=== PATIENT | female | born 1970 | race Caucasian/White ===

== ENCOUNTER → 2019-09-05 16:10 | Outpatient (BNVA) | payer MEDICAID, SELFPAY | PROVIDERS: Family Provider Nurse Practitioner; PCP Nurse Practitioner; Visit Provider Nurse Practitioner | DX: E11.65 Type 2 diabetes mellitus with hyperglycemia (principal); I10 Essential (primary) hypertension; M54.9 Dorsalgia, unspecified; M54.2 Cervicalgia; M25.50 Pain in unspecified joint | CPT/HCPCS: 72040; 72072; 72100; 73130; 73502; 73562; 73630; 80048; 83036 ==

== ENCOUNTER → 2019-09-19 14:07 | Outpatient (BNVA) | payer MEDICAID, SELFPAY | PROVIDERS: Family Provider Nurse Practitioner; PCP Nurse Practitioner; Visit Provider Nurse Practitioner | DX: E55.9 Vitamin D deficiency, unspecified (principal); E11.65 Type 2 diabetes mellitus with hyperglycemia; E11.40 Type 2 diabetes mellitus with diabetic neuropathy, unspecified; M10.9 Gout, unspecified | CPT/HCPCS: 82306; 84550 ==

== ENCOUNTER → 2020-01-02 12:57 | Outpatient (BNVA) | payer MEDICAID, SELFPAY | PROVIDERS: Family Provider Nurse Practitioner; PCP Nurse Practitioner; Visit Provider Nurse Practitioner | DX: I10 Essential (primary) hypertension (principal); E11.40 Type 2 diabetes mellitus with diabetic neuropathy, unspecified; E11.65 Type 2 diabetes mellitus with hyperglycemia | CPT/HCPCS: 80053; 80061; 83036; 85025 ==

== ENCOUNTER → 2020-01-03 09:34 | Outpatient (BNVA) | payer MEDICAID, SELFPAY | PROVIDERS: Family Provider Nurse Practitioner; PCP Nurse Practitioner; Visit Provider Nurse Practitioner | DX: E11.65 Type 2 diabetes mellitus with hyperglycemia (principal); E11.40 Type 2 diabetes mellitus with diabetic neuropathy, unspecified; I10 Essential (primary) hypertension | CPT/HCPCS: 81000 ==

== ENCOUNTER → 2020-01-09 09:41 | Outpatient (BNVA) | payer MEDICAID, SELFPAY | PROVIDERS: Family Provider Nurse Practitioner; PCP Nurse Practitioner; Visit Provider Nurse Practitioner | DX: E11.65 Type 2 diabetes mellitus with hyperglycemia (principal); M19.071 Primary osteoarthritis, right ankle and foot; M19.072 Primary osteoarthritis, left ankle and foot | CPT/HCPCS: 73630 ==

== ENCOUNTER → 2020-01-17 13:28 | Outpatient (BNVA) | payer MEDICAID, SELFPAY | PROVIDERS: Family Provider Nurse Practitioner; PCP Nurse Practitioner; Visit Provider Nurse Practitioner Family | DX: J06.9 Acute upper respiratory infection, unspecified (principal); Z20.828 Contact with and (suspected) exposure to other viral communicable diseases | CPT/HCPCS: 87635 ==

== ENCOUNTER → 2020-03-06 00:01 | Outpatient (BNVA) | payer MEDICAID, SELFPAY | PROVIDERS: Family Provider Nurse Practitioner; PCP Nurse Practitioner; Visit Provider Nurse Practitioner Family | DX: Z11.59 Encounter for screening for other viral diseases (principal) | CPT/HCPCS: 87635 ==

== ENCOUNTER → 2020-04-08 15:06 | Outpatient (BNVA) | payer MEDICAID, SELFPAY | PROVIDERS: Family Provider Nurse Practitioner; PCP Nurse Practitioner; Visit Provider Nurse Practitioner | DX: E11.65 Type 2 diabetes mellitus with hyperglycemia (principal); Z79.4 Long term (current) use of insulin; E11.40 Type 2 diabetes mellitus with diabetic neuropathy, unspecified; I10 Essential (primary) hypertension; E55.9 Vitamin D deficiency, unspecified | CPT/HCPCS: 80053; 81000; 83036 ==

== ENCOUNTER → 2020-06-18 08:37 | Outpatient (BNVA) | payer MEDICAID, SELFPAY | PROVIDERS: Family Provider Nurse Practitioner; PCP Nurse Practitioner; Visit Provider Nurse Practitioner | DX: E04.9 Nontoxic goiter, unspecified (principal); I10 Essential (primary) hypertension; I73.9 Peripheral vascular disease, unspecified; S91.309A Unspecified open wound, unspecified foot, initial encounter | CPT/HCPCS: 84443 ==

== ENCOUNTER → 2020-07-04 09:27 | Outpatient (BNVA) | payer MEDICAID, SELFPAY | PROVIDERS: Family Provider Nurse Practitioner; PCP Nurse Practitioner; Visit Provider Nurse Practitioner | DX: E04.9 Nontoxic goiter, unspecified (principal); I10 Essential (primary) hypertension; I73.9 Peripheral vascular disease, unspecified; S91.309A Unspecified open wound, unspecified foot, initial encounter; E11.40 Type 2 diabetes mellitus with diabetic neuropathy, unspecified; E11.65 Type 2 diabetes mellitus with hyperglycemia; Z79.4 Long term (current) use of insulin | CPT/HCPCS: 73630; 80053; 80061; 81000; 83036; 85025 ==

== ENCOUNTER 2020-07-18 07:44 | Outpatient (CLI) | payer MEDICAID, SELFPAY ==
--- NOTE | 2020-07-18 08:00 | US_ITS ---
WS: [id number] THYROID ULTRASOUND (TI-RADS CRITERIA) History: Nontoxic goiter.. Technique: Ultrasound examination of the thyroid and adjacent soft tissues is performed. FINDINGS: Right lobe: 4.9 cm x 2.1 cm x 1.8 cm. Volume: 9.7 cm3. Normal size gland. There are 2 subcentimeter hypoechoic nodules within the gland. The largest in the superior pole measures 5 x 7 x 9 mm. Lymph nodes: Small benign cervical chain and submandibular lymph nodes. Left lobe: 5.2 cm x 2.1 cm x 2.1 cm. Volume: 11.9 cm3. Normal size gland. Solid nodule lower pole. Lymph nodes: None. NODULE: 3 Size: 1.4 x 1.2 x 1.5 cm Location: LEFT inferior Composition: Solid/almost completely solid (2) Echogenicity: Isoechoic (1) Shape: Not taller than wide (0) Margins: Smooth (0) Echogenic foci: None (0) ACR TI-RADS total points: 3 ACR TI-RADS risk category: TR3 Isthmus: 0.7 cm. Isthmus is very mildly prominent and heterogeneous. US/US thyroid [id number] Impression: TR3 Recommendation:Follow up ultrasound in 1, 3 and 5 years. If thyroid nodule(s) change on follow-up examinations the recommendations will be altered as necessary.
== END 2020-07-18 07:45 | disposition home or self-care (01) ==
PROVIDERS: PCP Nurse Practitioner; Visit Provider Nurse Practitioner Family
DX: E04.9 Nontoxic goiter, unspecified (principal)
CPT/HCPCS: 76536

== ENCOUNTER → 2020-10-14 16:28 | Outpatient (BNVA) | payer MEDICAID, SELFPAY | PROVIDERS: PCP Nurse Practitioner; Visit Provider Nurse Practitioner | DX: E11.65 Type 2 diabetes mellitus with hyperglycemia (principal); Z79.4 Long term (current) use of insulin; I10 Essential (primary) hypertension; E11.40 Type 2 diabetes mellitus with diabetic neuropathy, unspecified; I73.9 Peripheral vascular disease, unspecified; M54.9 Dorsalgia, unspecified; R13.10 Dysphagia, unspecified; E55.9 Vitamin D deficiency, unspecified | CPT/HCPCS: 80053; 83036; 85025 ==

== ENCOUNTER → 2020-10-22 15:17 | Outpatient (BNVA) | payer MEDICAID, SELFPAY | PROVIDERS: PCP Nurse Practitioner; Visit Provider Nurse Practitioner | DX: M54.9 Dorsalgia, unspecified (principal); J38.2 Nodules of vocal cords; R93.89 Abnormal findings on diagnostic imaging of other specified body structures | CPT/HCPCS: 71046; 72072 ==

== ENCOUNTER → 2020-10-27 14:56 | Outpatient (BNVA) | payer MEDICAID, SELFPAY | PROVIDERS: PCP Nurse Practitioner; Visit Provider Nurse Practitioner | DX: R93.89 Abnormal findings on diagnostic imaging of other specified body structures (principal) | CPT/HCPCS: 71046 ==

== ENCOUNTER → 2021-01-13 09:50 | Outpatient (BNVA) | payer MEDICAID, SELFPAY | PROVIDERS: PCP Nurse Practitioner; Visit Provider Nurse Practitioner | DX: I10 Essential (primary) hypertension (principal); E11.40 Type 2 diabetes mellitus with diabetic neuropathy, unspecified; E11.65 Type 2 diabetes mellitus with hyperglycemia; I73.9 Peripheral vascular disease, unspecified; Z79.4 Long term (current) use of insulin; M25.50 Pain in unspecified joint | CPT/HCPCS: 80053; 80061; 81000; 83036; 84443; 85651; 86140; 86431 ==

== ENCOUNTER → 2021-04-07 10:18 | Outpatient (BNVA) | payer MEDICAID, SELFPAY | PROVIDERS: PCP Nurse Practitioner; Visit Provider Nurse Practitioner | DX: E11.65 Type 2 diabetes mellitus with hyperglycemia (principal); Z79.4 Long term (current) use of insulin | CPT/HCPCS: 80053; 80061; 81000; 83036 ==

== ENCOUNTER → 2021-07-06 12:05 | Outpatient (BNVA) | payer MEDICAID, SELFPAY | PROVIDERS: PCP Nurse Practitioner; Visit Provider Nurse Practitioner | DX: E11.65 Type 2 diabetes mellitus with hyperglycemia (principal); Z79.4 Long term (current) use of insulin | CPT/HCPCS: 80053; 80061; 81000; 83036 ==

== ENCOUNTER → 2021-07-08 15:03 | Outpatient (BNVA) | payer MEDICAID, SELFPAY | PROVIDERS: PCP Nurse Practitioner; Visit Provider Nurse Practitioner | DX: M54.12 Radiculopathy, cervical region (principal) | CPT/HCPCS: 72040 ==

== ENCOUNTER → 2021-07-24 13:38 | Outpatient (BNVA) | payer MEDICAID, SELFPAY | PROVIDERS: PCP Nurse Practitioner; Visit Provider Podiatrist Foot & Ankle Surgery | DX: L60.3 Nail dystrophy (principal); S92.351A Displaced fracture of fifth metatarsal bone, right foot, initial encounter for closed fracture; W22.8XXA Striking against or struck by other objects, initial encounter; E11.621 Type 2 diabetes mellitus with foot ulcer; L97.522 Non-pressure chronic ulcer of other part of left foot with fat layer exposed; E11.40 Type 2 diabetes mellitus with diabetic neuropathy, unspecified; Z79.4 Long term (current) use of insulin | CPT/HCPCS: 11042; 11721; 28470; 73630 ==

== ENCOUNTER → 2021-08-06 08:17 | Outpatient (BNVA) | payer MEDICAID, SELFPAY | PROVIDERS: PCP Nurse Practitioner; Referring Provider Nurse Practitioner; Visit Provider Orthopaedic Surgery | DX: L60.3 Nail dystrophy (principal); E11.40 Type 2 diabetes mellitus with diabetic neuropathy, unspecified; S92.351D Displaced fracture of fifth metatarsal bone, right foot, subsequent encounter for fracture with routine healing; W22.8XXD Striking against or struck by other objects, subsequent encounter; M54.9 Dorsalgia, unspecified | CPT/HCPCS: 72040; 73630; 99204; 99213; 99214 ==

== ENCOUNTER 2021-09-09 07:05 | Outpatient (CLI) | payer MEDICAID, SELFPAY ==
--- NOTE | 2021-09-09 07:15 | MR_ITS ---
WS: [id number] MRI CERVICAL SPINE NONCONTRAST HISTORY: pain, numbness, RIGHT hand numbness. COMPARISON: None available. Technique: Multiplanar, multisequence noncontrast imaging of the cervical spine. Straightening and slight reversal of normal cervical lordosis. No marrow edema or fractures. Anterior bridging osteophytes with thickening of the longitudinal ligament throughout the cervical spine. Mos t significant at C3 through through C7. There is additional wavy low signal along the posterior longi tudinal ligament beginning at the C2 level through C7. This low signal thickening of the posterior lo ngitudinal ligament encroaches into the central canal. There is deformity and narrowing and slight ma ss effect upon the cervical cord. Small caliber cord with deformity from C2-3 through C6-7. Craniocervical junction, C1 and C2 relationship, odontoid process and soft tissues are normal. C2-C3: Thickened posterior longitudinal ligament encroaching into the cervical canal causing signific ant central stenosis and deformity of the cord. No significant foraminal stenosis. C3-C4: Osteophytosis with thickening of the posterior longitudinal ligament. Slightly greater encroac hment to the LEFT. Moderate to severe central and mild foraminal stenosis. C4-C5: Marked thickening of the posterior longitudinal ligament causing severe central and mild marly inal stenosis. C5-C6: Marked thickening of the posterior longitudinal ligament. There is a small central disc protru nayan. Severe central and moderate to severe bilateral foraminal stenosis. C6-C7: Severe central and bilateral foraminal stenosis due to thickening of the posterior longitudina l ligament and disc and osteophyte disease. C7-T1: Mild osteophytic ridging with severe central and bilateral foraminal stenosis. Paraspinal soft tissue are normal. MR/MR cervical spin wo con* [id number] IMPRESSION: 1. Multilevel contiguous severe central and foraminal stenosis as described ab ove. There is marked thickening and a wavy appearance of the posterior longitud inal ligament. Findings are highly suspicious for ossification of the posterior longitudinal ligament which is causing a significant stenosis of the central c ervical canal. 2. Hypertrophic osteophyte formation and the ossification of the posterior ralph gitudinal ligament. Combination of DSH and OPLL.
== END 2021-09-09 07:06 | disposition home or self-care (01) ==
PROVIDERS: PCP Nurse Practitioner; Visit Provider Orthopaedic Surgery
DX: M54.12 Radiculopathy, cervical region (principal); M48.02 Spinal stenosis, cervical region; M48.03 Spinal stenosis, cervicothoracic region
CPT/HCPCS: 72141

== ENCOUNTER → 2021-09-11 14:30 | Outpatient (BNVA) | payer MEDICAID, SELFPAY | PROVIDERS: PCP Nurse Practitioner; Visit Provider Podiatrist Foot & Ankle Surgery | DX: L60.3 Nail dystrophy (principal); S92.351D Displaced fracture of fifth metatarsal bone, right foot, subsequent encounter for fracture with routine healing; S92.501D Displaced unspecified fracture of right lesser toe(s), subsequent encounter for fracture with routine healing; E11.40 Type 2 diabetes mellitus with diabetic neuropathy, unspecified; W22.8XXD Striking against or struck by other objects, subsequent encounter | CPT/HCPCS: 73630; 99213; 99214 ==

== ENCOUNTER → 2021-10-01 10:40 | Outpatient (BNVA) | payer MEDICAID, SELFPAY | PROVIDERS: PCP Nurse Practitioner; Visit Provider Orthopaedic Surgery | DX: M47.22 Other spondylosis with radiculopathy, cervical region (principal); M47.12 Other spondylosis with myelopathy, cervical region | CPT/HCPCS: 73630; 99214 ==

== ENCOUNTER 2021-10-01 14:38 | Outpatient (CLI) | payer MEDICAID, SELFPAY | END 2021-10-01 14:39 | disposition home or self-care (01) | LOC: SPT 14:39 | PROVIDERS: PCP Nurse Practitioner; Visit Provider Orthopaedic Surgery | DX: M54.12 Radiculopathy, cervical region (principal); E11.40 Type 2 diabetes mellitus with diabetic neuropathy, unspecified; Z79.4 Long term (current) use of insulin; Z79.84 Long term (current) use of oral hypoglycemic drugs; Z46.89 Encounter for fitting and adjustment of other specified devices; M47.12 Other spondylosis with myelopathy, cervical region; S92.354D Nondisplaced fracture of fifth metatarsal bone, right foot, subsequent encounter for fracture with routine healing; S92.501D Displaced unspecified fracture of right lesser toe(s), subsequent encounter for fracture with routine healing; L60.3 Nail dystrophy; W22.09XD Striking against other stationary object, subsequent encounter | CPT/HCPCS: 95910; 95913; 97760; 99213; 99214; L0174 ==

== ENCOUNTER 2021-10-06 | Outpatient (CLI) | payer MEDICAID, SELFPAY | END 2021-10-06 23:00 | disposition home or self-care (01) | LOC: RAD 01-03 22:05 | PROVIDERS: PCP Nurse Practitioner; Visit Provider Nurse Practitioner | DX: E11.65 Type 2 diabetes mellitus with hyperglycemia (principal); Z79.4 Long term (current) use of insulin | CPT/HCPCS: 80053; 80061; 83036 ==

== ENCOUNTER → 2021-12-14 10:33 | Outpatient (BNVA) | payer MEDICAID, SELFPAY | PROVIDERS: PCP Nurse Practitioner; Visit Provider Podiatrist Foot & Ankle Surgery | DX: E11.621 Type 2 diabetes mellitus with foot ulcer (principal); L97.522 Non-pressure chronic ulcer of other part of left foot with fat layer exposed; S92.354D Nondisplaced fracture of fifth metatarsal bone, right foot, subsequent encounter for fracture with routine healing; S92.504D Nondisplaced unspecified fracture of right lesser toe(s), subsequent encounter for fracture with routine healing; E11.40 Type 2 diabetes mellitus with diabetic neuropathy, unspecified; L60.3 Nail dystrophy; Z79.4 Long term (current) use of insulin; X58.XXXD Exposure to other specified factors, subsequent encounter | CPT/HCPCS: 73630; 99214 ==

== ENCOUNTER → 2022-02-08 14:07 | Outpatient (BNVA) | payer MEDICAID, SELFPAY | PROVIDERS: PCP Nurse Practitioner; Visit Provider Podiatrist Foot & Ankle Surgery | DX: E11.621 Type 2 diabetes mellitus with foot ulcer (principal); L97.522 Non-pressure chronic ulcer of other part of left foot with fat layer exposed; E11.40 Type 2 diabetes mellitus with diabetic neuropathy, unspecified; S92.501K Displaced unspecified fracture of right lesser toe(s), subsequent encounter for fracture with nonunion; X58.XXXD Exposure to other specified factors, subsequent encounter; L60.3 Nail dystrophy; L84 Corns and callosities; Z79.4 Long term (current) use of insulin | CPT/HCPCS: 11042; 11055; 11721; 73630; 99214 ==

== ENCOUNTER → 2022-02-16 14:15 | Outpatient (BNVA) | payer MEDICAID, SELFPAY | PROVIDERS: PCP Nurse Practitioner; Visit Provider Nurse Practitioner | DX: E11.65 Type 2 diabetes mellitus with hyperglycemia (principal); E55.9 Vitamin D deficiency, unspecified; Z79.4 Long term (current) use of insulin; I73.9 Peripheral vascular disease, unspecified; I10 Essential (primary) hypertension; K59.01 Slow transit constipation; E11.40 Type 2 diabetes mellitus with diabetic neuropathy, unspecified | CPT/HCPCS: 80053; 80061; 81000; 82306; 83036 ==

== ENCOUNTER → 2022-02-22 14:28 | Outpatient (BNVA) | payer MEDICAID, SELFPAY | PROVIDERS: PCP Nurse Practitioner; Visit Provider Podiatrist Foot & Ankle Surgery | DX: S92.501D Displaced unspecified fracture of right lesser toe(s), subsequent encounter for fracture with routine healing (principal); S92.354G Nondisplaced fracture of fifth metatarsal bone, right foot, subsequent encounter for fracture with delayed healing; E11.40 Type 2 diabetes mellitus with diabetic neuropathy, unspecified; Z79.4 Long term (current) use of insulin; X58.XXXD Exposure to other specified factors, subsequent encounter | CPT/HCPCS: 99214 ==

== ENCOUNTER → 2022-04-14 09:43 | Outpatient (BNVA) | payer MEDICAID, SELFPAY | PROVIDERS: PCP Nurse Practitioner; Visit Provider Podiatrist Foot & Ankle Surgery | DX: X58.XXXD Exposure to other specified factors, subsequent encounter (principal); Z79.84 Long term (current) use of oral hypoglycemic drugs; L85.9 Epidermal thickening, unspecified; L60.2 Onychogryphosis; E11.40 Type 2 diabetes mellitus with diabetic neuropathy, unspecified; S92.501D Displaced unspecified fracture of right lesser toe(s), subsequent encounter for fracture with routine healing; S92.354G Nondisplaced fracture of fifth metatarsal bone, right foot, subsequent encounter for fracture with delayed healing | CPT/HCPCS: 11056; 11721 ==

== ENCOUNTER → 2022-05-26 10:28 | Outpatient (BNVA) | payer MEDICAID, SELFPAY | PROVIDERS: PCP Nurse Practitioner; Visit Provider Podiatrist Foot & Ankle Surgery | DX: E11.8 Type 2 diabetes mellitus with unspecified complications (principal); E11.40 Type 2 diabetes mellitus with diabetic neuropathy, unspecified; Z79.4 Long term (current) use of insulin; L84 Corns and callosities; L60.3 Nail dystrophy | CPT/HCPCS: 11056; 11721 ==

== ENCOUNTER 2022-06-09 12:48 | Outpatient (CLI) | payer MEDICAID, SELFPAY ==
--- NOTE | 2022-06-09 13:07 | MM_ITS ---
WS: [id number] BILATERAL 3D TOMOSYNTHESIS DIGITAL SCREENING MAMMOGRAPHY WITH CAD CLINICAL INFORMATION: Z12.39 - Encounter for other screening for malignant neop... HISTORY: Screening mammogram. No current complaints. COMPARISON: None. TECHNIQUE: Bilateral CC and MLO views. FINDINGS: Scattered fibroglandular densities bilaterally. No suspicious focal mass, asymmetry, calcifications, or architectural distortion. No evidence of malignancy. A few incidental punctate calcifications. MM/[place] [id number] IMPRESSION: BI-RADS: 2-Benign FOLLOW UP: 1 Year Follow-up Recommend return to annual screening mammography.
== END 2022-06-09 12:49 | disposition home or self-care (01) ==
LOC: RAD 12:52
PROVIDERS: PCP Nurse Practitioner; Visit Provider Nurse Practitioner
DX: E11.40 Type 2 diabetes mellitus with diabetic neuropathy, unspecified (principal); E11.65 Type 2 diabetes mellitus with hyperglycemia; Z12.31 Encounter for screening mammogram for malignant neoplasm of breast; L60.3 Nail dystrophy; Z79.4 Long term (current) use of insulin; I10 Essential (primary) hypertension; I73.9 Peripheral vascular disease, unspecified; E55.9 Vitamin D deficiency, unspecified; K59.01 Slow transit constipation; Z12.11 Encounter for screening for malignant neoplasm of colon; K06.9 Disorder of gingiva and edentulous alveolar ridge, unspecified; E66.9 Obesity, unspecified; M54.12 Radiculopathy, cervical region
CPT/HCPCS: 77063; 77067; 80053; 80061; 81000; 82043; 83036; 99213

== ENCOUNTER → 2022-07-28 13:06 | Outpatient (BNVA) | payer MEDICAID, SELFPAY | PROVIDERS: PCP Nurse Practitioner; Visit Provider Podiatrist Foot & Ankle Surgery | DX: E11.40 Type 2 diabetes mellitus with diabetic neuropathy, unspecified (principal); L60.3 Nail dystrophy; L84 Corns and callosities; Z79.4 Long term (current) use of insulin | CPT/HCPCS: 11056; 11721 ==

== ENCOUNTER → 2022-11-09 14:51 | Outpatient (BNVA) | payer MEDICARE, MEDICAID, SELFPAY | PROVIDERS: PCP Nurse Practitioner; Visit Provider Nurse Practitioner | DX: E11.65 Type 2 diabetes mellitus with hyperglycemia (principal); Z79.4 Long term (current) use of insulin; E11.40 Type 2 diabetes mellitus with diabetic neuropathy, unspecified; I10 Essential (primary) hypertension | CPT/HCPCS: 80053; 80061; 81000; 83036; 84443; 85025 ==

== ENCOUNTER → 2022-12-22 07:56 | Outpatient (BNVA) | payer MEDICARE, MEDICAID, SELFPAY | PROVIDERS: PCP Nurse Practitioner; Visit Provider Podiatrist Foot & Ankle Surgery | DX: E11.40 Type 2 diabetes mellitus with diabetic neuropathy, unspecified; L84 Corns and callosities; Z79.4 Long term (current) use of insulin | CPT/HCPCS: 11056 ==

== ENCOUNTER → 2023-03-09 10:10 | Outpatient (BNVA) | payer MEDICARE, MEDICAID, SELFPAY | PROVIDERS: PCP Nurse Practitioner; Visit Provider Podiatrist Foot & Ankle Surgery | DX: E11.40 Type 2 diabetes mellitus with diabetic neuropathy, unspecified; L84 Corns and callosities; L60.3 Nail dystrophy; S92.351K Displaced fracture of fifth metatarsal bone, right foot, subsequent encounter for fracture with nonunion; Z79.4 Long term (current) use of insulin; X58.XXXD Exposure to other specified factors, subsequent encounter | CPT/HCPCS: 11056; 11721; 73630; 99213 ==

== ENCOUNTER → 2023-03-30 14:23 | Outpatient (BNVA) | payer MEDICARE, MEDICAID, SELFPAY | PROVIDERS: PCP Nurse Practitioner; Visit Provider Nurse Practitioner | DX: E11.9 Type 2 diabetes mellitus without complications (principal) | CPT/HCPCS: 80053; 80061; 81000; 82607; 83036 ==

== ENCOUNTER 2023-05-25 23:00 | Emergency (ER) | payer MEDICARE, MEDICAID, SELFPAY ==
[2023-05-25 23:01] VITALS: BP 102/80; PULSE 87; RESP 16; TEMP 36.8; O2SAT 92; BMI 33.3
--- NOTE | 2023-05-25 23:07 | CTR_ITS ---
PROCEDURE INFORMATION: Exam: CT Cervical Spine Without Contrast Exam date and time: 05/25/2023 11:46 PM Age: 52 years old Clinical indication: Injury or trauma; Injury details: Fall from 5ft; Additional info: Trauma/fall TECHNIQUE: Imaging protocol: Computed tomography of the cervical spine without contrast. Radiation optimization: All CT scans at this facility use at least one of these dose optimization techniques: automated exposure control; mA and/or kV adjustment per patient size (includes targeted exams where dose is matched to clinical indication); or iterative reconstruction. COMPARISON: MR cervical spin wo con* [id number] 09/09/2021 7:36 AM RADIATION DOSE METRICS: Total DLP (mGy-cm): 288.87 FINDINGS: Bones/joints: Vertebral body heights maintained. Straightening and slight reversal of the normal cervical lordosis which is likely positional. No definite acute fracture in the cervical spine. No posttraumatic subluxation. Also noted is partial ossification of the posterior longitudinal ligament at multiple levels most prominent at the C2-C3 level. This is superimposed on a somewhat small central spinal canal causing at least moderate central canal narrowing at multiple levels. Partially visualized is a comminuted left clavicle fracture. There is also a nondisplaced fracture through the posterior 2nd rib. Lungs: Lung apices are normal. No pneumothorax identified. Soft tissues: Prominent probable soft tissue in the nasopharynx symmetrically. This was noted on the head CT as well. Correlate with any clinical findings. CT/CT cervical spin wo con* [id number] IMPRESSION: 1. No definite acute fracture or posttraumatic subluxation in the cervical region. 2. There is ossification of the posterior longitudinal ligament at multiple levels in the cervical spine causing at least moderate central canal narrowing at multiple levels. 3. Partially visualized is a left clavicle fracture. There is also a nondisplaced fracture through the posterior 2nd rib. 4. Prominent probable soft tissue in the nasopharynx which is fairly symmetrical. Correlate clinically. COMMENT: THIS REPORT CONTAINS FINDINGS THAT MAY BE CRITICAL TO PATIENT CARE. The exam findings were verbally communicated by me to DR. IVAN HUA via telephone conference at 12:50 AM CDT on 05/26/2023. The findings were acknowledged and understood.
--- NOTE | 2023-05-25 23:07 | XRR_ITS ---
PROCEDURE INFORMATION: Exam: XR Left Ribs with PA Chest Exam date and time: 05/26/2023 12:11 AM Age: 52 years old Clinical indication: Injury or trauma; Rib area, left side; Blunt trauma; Injury details: Fall from 5ft; Additional info: Trauma/fall TECHNIQUE: Imaging protocol: Radiologic exam of the left ribs with PA chest. Views: 3 views COMPARISON: CR XR chest 2V* [id number] 10/27/2020 3:02 PM FINDINGS: Lungs: Unremarkable. No consolidation. Pleural spaces: Unremarkable. No pleural effusion. No pneumothorax. Heart/Mediastinum: Unremarkable. No cardiomegaly. Bones/joints: Mid clavicular comminuted fracture with overlap of the fracture fragments somewhat visualized. XR/XR ribs LT mn 3V w CXR1V [id number] IMPRESSION: Mid clavicular comminuted fracture with overlap of the fracture fragments somewhat visualized.
--- NOTE | 2023-05-25 23:07 | CTR_ITS ---
PROCEDURE INFORMATION: Exam: CT Head Without Contrast Exam date and time: 05/25/2023 11:44 PM Age: 52 years old Clinical indication: Injury or trauma; Patient HX: Fall from 5ft; Additional info: Trauma/fall TECHNIQUE: Imaging protocol: Computed tomography of the head without contrast. Radiation optimization: All CT scans at this facility use at least one of these dose optimization techniques: automated exposure control; mA and/or kV adjustment per patient size (includes targeted exams where dose is matched to clinical indication); or iterative reconstruction. COMPARISON: MR cervical spin wo con* [id number] 09/09/2021 7:36 AM RADIATION DOSE METRICS: Total DLP (mGy-cm): 1087.78 FINDINGS: Brain: No evidence for acute intracranial hemorrhage, obstructive hydrocephalus or mass. Mild generalized cerebral atrophy. Cerebral ventricles: No ventriculomegaly. Paranasal sinuses: Visualized sinuses are unremarkable. No fluid levels. Mastoid air cells: Small amount of fluid or mucosal thickening inferior right mastoids. Left mastoids clear. Bones/joints: Unremarkable. No acute fracture. Soft tissues: There is either prominent lymphoid tissue in the nasopharynx bilaterally versus some pooled secretions. CT/CT head wo con* [id number] IMPRESSION: 1. No acute intracranial abnormality. 2. Mild age-related changes. 3. There is either prominent lymphoid tissue in the nasopharynx versus pooled secretions new from previous MRI. Correlate for any clinical findings.
--- NOTE | 2023-05-25 23:07 | XRR_ITS ---
PROCEDURE INFORMATION: Exam: XR Left Shoulder Exam date and time: 05/25/2023 11:58 PM Age: 52 years old Clinical indication: Injury or trauma; Fall; Blunt trauma (contusions or hematomas); Shoulder; Left; Additional info: Trauma/fall TECHNIQUE: Imaging protocol: Radiologic exam of the left shoulder. Views: 2 or more views. COMPARISON: CT cervical spin wo con* [id number] 05/25/2023 11:46 PM FINDINGS: Bones/joints: Midclavicular comminuted fracture with overlap of the fracture fragments. Atmr-[id number] acromioclavicular and glenohumeral joint osteoarthritis. Lungs: Patchy bilateral ground-glass airspace opacities may reflect alveolar edema. Heart/Mediastinum: Cardiomegaly and pulmonary vascular congestion. Soft tissues: Normal. XR/XR shoulder LT min 2V* [id number] IMPRESSION: 1. Midclavicular comminuted fracture with overlap of the fracture fragments. 2. Uxzl-xy-dbiklyng acromioclavicular and glenohumeral joint osteoarthritis. 3. Cardiomegaly and pulmonary vascular congestion. 4. Patchy bilateral ground-glass airspace opacities may reflect alveolar edema.
--- NOTE | 2023-05-25 23:07 | XRR_ITS ---
PROCEDURE INFORMATION: Exam: XR Left Humerus Exam date and time: 05/26/2023 12:05 AM Age: 52 years old Clinical indication: Injury or trauma; Blunt trauma (contusions or hematomas); Arm, upper; Left; Patient HX: Fall from 5ft; Additional info: Trauma/fall TECHNIQUE: Imaging protocol: Radiologic exam of the left humerus. Views: 2 or more views. COMPARISON: CR XR shoulder LT min 2V* [id number] 05/25/2023 11:58 PM FINDINGS: Bones/joints: Mid clavicular comminuted fracture with overlap of the fracture fragments somewhat visualized. Soft tissues: Normal. XR/[place] [id number] IMPRESSION: Mid clavicular comminuted fracture with overlap of the fracture fragments somewhat visualized.
--- NOTE | 2023-05-25 23:10 | XRR_ITS ---
PROCEDURE INFORMATION: Exam: XR Right Knee Exam date and time: 05/25/2023 11:51 PM Age: 52 years old Clinical indication: Injury or trauma; Fall; Blunt trauma; Knee; Right; Additional info: Trauma/fall TECHNIQUE: Imaging protocol: Radiologic exam of the right knee. Views: 3 views. COMPARISON: CR XR foot RT min 3V* [id number] 03/09/2023 10:14 AM FINDINGS: Bones/joints: Mild tricompartmental osteoarthritis of the knee. Soft tissues: Normal. XR/XR knee RT 3V* [id number] IMPRESSION: 1. No acute findings. 2. Mild tricompartmental osteoarthritis of the knee.
[2023-05-25] MEDS: ondansetron 2 mg/ML SDV 2 mL 4 MG IVP (23:37)
[2023-05-25] MEDS: morphine 4 mg/mL SDV 1 mL IVP (23:38)
[2023-05-26 00:10] VITALS: RESP 20
[2023-05-26 00:42] VITALS: BP 109/71; PULSE 83; RESP 18; O2SAT 91
[2023-05-26 00:57] VITALS: BP 109/71; PULSE 84; O2SAT 92
--- NOTE | 2023-05-26 01:11 | ED_ITS ---
HPI - Fall General: Chief Complaint: Fall Stated Complaint: fall Time Seen by Provider: 05/25/23 23:01 History of Present Illness: 52-year-old female presents emerged depa rtment via EMS personnel states that she was at her friend's house had an accidental misstep falling from an elevated porch approximately 5 feet to the hard ground on her left side. The patient states she has 10 out of 10 left shoulder and arm pain. She states the pain is worse if she attempts to move her arm. She states she also has left rib pain. She states she has right knee pain and has abrasions to her right knee. She denies loss of consciousness but did state that she hit her head. She denies ne ck pain nausea vomiting numbness or tingling. She states she did break her right foot several months ago and it has still not healed yet. She states she has seen Dr. Marvin-podiatry for her previous foot injury. Associated symptoms-after fall: Denies chest pain Review of Systems General: Reports: 10 or more systems reviewed and unremarkable except in HPI and below Card: Denies: chest pain Resp: Denies: dyspnea Musc: Reports: back pain, extremity pain, joint pain and limited range of motion PFSH ED PFSH: Medical History Constipation, slow transit Diabetes mellitus with hyperglycemia, with long-term current use of insulin Vitamin D deficiency Essential (primary) hypertension Surgical History History of section Family History Other Alzheimer disease Cancer Hypertension Social History Smoking and tobacco/nicotine status: former use of tobacco/nicotine Quit status (tobacco/nicotine): has quit using Year quit tobacco: 2019 Former quit date comment: 0.5 PPD X 34 YEARS Second hand smoke exposure: Yes Alcohol intake: never Substance/Drug Use: unknown Adopted: No Caregiver/support person: No Lives independently: Yes Household members: family Housing: House Marital status: service: No Do you think of yourself as: Straight/Heterosexual Current gender identity: Female Physical Exam Narrative: EXAM NARRATIVE: Constitutional: the patient appears well nourished and with normal development. Vital signs reviewed as documented. HENMT: Normocephalic, atraumatic. External ears normal appearance without drainage. Nose without drainage, normal appearance. Mucus membranes moist. Neck is supple, No jugular venous distension, trachea is midline, no appreciable carotid bruits. No lymphadenopathy. No meningeal signs. Flexion, extension and lateral rotation is without pain. No palpable step-offs, no crepitus, nontender to palpation. Eyes: Pupils are equal, round, reactive to light and accommodation. No scleral icterus. Extra-ocular movement are intact. Thorax is symmetrical and with equal rise and fall with respirations. Obvious tenderness to palpation to the left clavicle lateral aspect. Tender to palpation to the left lateral rib area. Resp: Lungs are clear to auscultation. No wheezes, rales, crackles or ronchi at present. Cardio: Regular rate and rhythm. Positive S1, S2. No appreciable murmurs, rubs or gallops. GI: Abdominal exam reveals normal bowel sounds to all quadrants. No organomegaly. No obvious palpable masses noted. No hepatomegally appreciated. Soft, non-tender to palpation. Extremity: Extremities are non-edematous and both femoral and pedal pulses are 2+ and equal bilaterally. Moves all extremities well, sensation in all extremities. Neuro: Alert and oriented x4, person, place, time and situation. Cranial nerves II through XII are grossly intact, there is no focal neurological deficits that I can appreciate at present. Sensation intact to all extremities. 2-point discrimination intact. Light touch intact to all extremities. Motor strength in the upper and lower extremities are equal and bilateral 5/5. Psych: Cooperative, calm, normal thought process, appropriate judgment. Skin: No lesions, rashes. No gross abnormalities noted. Back: Symmetrical, no obvious deformity, No CVA tenderness. No crepitus, nontender, no palpable step-offs, normal alignment, Course ED course: Procedure note: Left / shoulder sling I reviewed the radiographic examination and determined the need for stabilization via left upper extremity sling. A soft shoulder sling was utilized. The sling was ordered and placed by the nursing staff, under the direct supervision of myself (ER Physician. The patient's neurovascular status was evaluated and was intact before and after the application of the sling/splint. Capillary refill was less than 3 seconds before and after the application. The patient was provided a sling and the most appropriate anatomical and functional position at that time. Anticipatory guidance, return precautions and red flag precautions were provided to the patient and support person. The patient/support person was advised to contact the patient's primary care provider or Orthopedic provider to make a follow-up appointment for additional evaluation and treatment within the next 3-5 days. Vital Signs: Vital signs: Vital Signs Temperature 98.2 F 05/25/23 23:01 Pulse Rate 84 05/26/23 00:57 Respiratory Rate 18 05/26/23 00:42 Blood Pressure 109/71 05/26/23 00:57 Pulse Oximetry 92 05/26/23 00:57 Oxygen Delivery Me thod Room Air 05/26/23 00:57 MDM - Fall Medical Decision Making Physical exam completed and documented I will obtain a CT scan of her head and cervical spine as well as chest x-ray humerus x-ray left clavicle x-ray and right knee x-ray. I will provide the patient IV and p.o. pain medication. I did discuss her laboratory findings to include a left clavicular fracture comminuted-displaced as well as her left second rib fracture-nondisplaced. I did provide the patient the contact information of the orthopedic physician on- call and the patient stated she would contact their office for follow-up. Patient was provided electronic prescriptions and discharge paperwork. Medical Records I reviewed the patient's medical records. Lab Data Radiology Impressions Cervical Spine CT 05/25/23 23:07 IMPRESSION: 1. No definite acute fracture or posttraumatic subluxation in the cervical region. 2. There is ossification of the posterior longitudinal ligament at multiple levels in the cervical spine causing at least moderate central canal narrowing at multiple levels. 3. Partially visualized is a left clavicle fracture. There is also a nondisplaced fracture through the posterior 2nd rib. 4. Prominent probable soft tissue in the nasopharynx which is fairly symmetrical. Correlate clinically. COMMENT: THIS REPORT CONTAINS FINDINGS THAT MAY BE CRITICAL TO PATIENT CARE. The exam findings were verbally communicated by me to DR. EMEKA REYES via telephone conference at 12:50 AM CDT on 05/26/2023. The findings were acknowledged and understood. Head CT 05/25/23 23:07 IMPRESSION: 1. No acute intracranial abnormality. 2. Mild age-related changes. 3. There is either prominent lymphoid tissue in the nasopharynx versus pooled secretions new from previous MRI. Correlate for any clinical findings. Humerus X-Ray 05/25/23 23:07 IMPRESSION: Mid clavicular comminuted fracture with overlap of the fracture fragments somewhat visualized. Ribs X-Ray 05/25/23 23:07 IMPRESSION: Mid clavicular comminuted fracture with overlap of the fracture fragments somewhat visualized. Shoulder X-Ray 05/25/23 23:07 IMPRESSION: 1. Midclavicular comminuted fracture with overlap of the fracture fragments. 2. Hfop-pf-svijiqtl acromioclavicular and glenohumeral joint osteoarthritis. 3. Cardiomegaly and pulmonary vascular congestion. 4. Patchy bilateral ground-glass airspace opacities may reflect alveolar edema. Knee X-Ray 05/25/23 23:10 IMPRESSION: 1. No acute findings. 2. Mild tricompartmental osteoarthritis of the knee. All radiology interpretation(s) finalized by discharge Discharge Plan Discharge Patient Disposition: Home Clinical Impression: Left-sided chest wall pain Closed left clavicular fracture Qualifiers: Encounter type: initial encounter Clavicle location: lateral end Fracture alignment: displaced Qualified Code(s): S42.032A - Displaced fracture of lateral end of left clavicle, initial encounter for closed fracture Accidental fall Qualifiers: Encounter type: initial encounter Qualified Code(s): W19.XXXA - Unspecified fall, initial encounter Left rib fracture Qualifiers: Encounter type: initial encounter Rib fracture type: single rib Fracture type: closed Qualified Code(s): S22.32XA - Fracture of one rib, left side, initial encounter for closed fracture Condition: Stable Prescriptions: New cyclobenzaprine 10 mg tablet 10 mg PO Q8H Qty: 14 0RF hydrocodone-acetaminophen 5-325 mg tablet 1 tab PO Q8H PRN (Reason: pain) Qty: 14 0RF No Action (DME) OneTouch Ultra Blue Test Strip Strip See Rx Instructions .ROUTE .MEDSUPPLY Qty: 50 5RF Rx Instructions: 1 strip daily (DME) Diabetic Shoes See Rx Instructions .ROUTE .MEDSUPPLY Qty: 1 0RF Rx Instructions: As directed by [facility] with 3 pairs of inserts mupirocin 2 % ointment 1 applic topical BID Qty: 15 3RF Rx Instructions: apply BID acarbose 50 mg tablet 50 mg PO TID Qty: 90 2RF Rx Instructions: take before food amlodipine 5 mg tablet 5 mg PO DAILY Qty: 30 2RF chlorhexidine gluconate [Peridex] 0.12 % mouthwash 15 ml buccal BID Qty: 473 0RF cholecalciferol (vitamin D3) 125 mcg (5,000 unit) capsule 125 mcg PO DAILY Qty: 30 2RF clopidogrel [Plavix] 75 mg tablet 75 mg PO DAILY Qty: 30 2RF duloxetine [Cymbalta] 60 mg capsule,delayed release(DR/EC) 60 mg PO BID Qty: 60 2RF furosemide [Lasix] 20 mg tablet 20 mg PO BID PRN (Reason: edema) Qty: 60 2RF gabapentin 600 mg tablet 600 mg PO TID Qty: 90 2RF Toujeo SoloStar U-300 Insulin 300 unit/mL (1.5 mL) insulin pen 25 unit SUBCUT DAILY Qty: 1.5 1RF losartan 100 mg tablet 100 mg PO DAILY Qty: 30 2RF mecobalamin (vitamin B12) 5,000 mcg tablet,disintegrating 5,000 mcg PO DAILY Qty: 30 2RF polyethylene glycol 3350 [Miralax] 17 gram/dose powder 17 g PO DAILY Qty: 510 2RF zonisamide [Zonegran] 100 mg capsule 100 mg PO BID Qty: 60 2RF (DME) Shira Wood See Rx Instructions .Route .MEDSUPPLY Qty: 1 0RF Rx Instructions: As directed (DME) 3 Pairs of inserts no diabetic shoes See Rx Instructions .Route .MEDSUPPLY Qty: 1 0RF Rx Instructions: As directed by Home (DME) lancets 33 gauge misc See Rx Instructions .ROUTE .MEDSUPPLY Qty: 100 5RF Rx Instructions: 3 daily as needed (DME) pen needle, diabetic 33 gauge x /32 needle See Rx Instructions .ROUTE .MEDSUPPLY Qty: 100 5RF Rx Instructions: 2 times day MediHoney (honey) 100 % paste 1 applic topical BID Qty: 103 0RF Ozempic 1 mg/dose (4 mg/3 mL) pen injector 1 mg SUBCUT .weekly Qty: 3 1RF Discharge Orders: Discharge ED (Routine); Ordered 05/26/23 Ordered By: Emeka Reyes Referrals: Bhumika Tao, CATH LAB TECH-C [Primary Care Provider] - Lulu Dawson MD [Physician] - Discharge Diet: Usual diet Discharge Activity: Resume usual activity Patient Instructions: Opioid Safety, Pain Management Activity Restrictions/Additional Instructions: Activity Restrictions/Additional Instructions: Thank you for choosing [facility] for your healthcare needs today. Please realize that you were seen in the Emergency Department and that we are providing you with an emergency medical screening exam and this may not be a complete and all inclusive of all the testing and or medical work-up that you may need to determine your ailment or severity of your illness. It is very important that you follow-up as instructed with your Primary care provider or Specialist for additional evaluation and to discuss your medical treatment plan. Coding Level of Care Code ED Printer Repair Technician for Junie Holliday
[2023-05-26 01:35] VITALS: RESP 18
[2023-05-26] MEDS: morphine 4 mg/mL SDV 1 mL IVP (01:35)
[2023-05-26] MEDS: HYDROcodone-acetaminophen 10-325 mg Tablet 2 TAB PO (01:35)
[2023-05-26 01:36] VITALS: BP 118/76; PULSE 89; RESP 16; O2SAT 92
== END 2023-05-26 02:04 | disposition home or self-care (01) ==
PROVIDERS: Emergency Provider Internal Medicine; PCP Nurse Practitioner
DX: R07.89 Other chest pain (principal); S42.032A Displaced fracture of lateral end of left clavicle, initial encounter for closed fracture; S22.32XA Fracture of one rib, left side, initial encounter for closed fracture; Z79.02 Long term (current) use of antithrombotics/antiplatelets; Z79.4 Long term (current) use of insulin; Z87.891 Personal history of nicotine dependence; E11.9 Type 2 diabetes mellitus without complications; I10 Essential (primary) hypertension; W17.89XA Other fall from one level to another, initial encounter
CPT/HCPCS: 70450; 71101; 72125; 73030; 73060; 73562; 96374; 96375; 96376; 99285; J2270; J2405

== ENCOUNTER → 2023-06-14 09:46 | Outpatient (BNVA) | payer MEDICARE, MEDICAID, SELFPAY | PROVIDERS: PCP Nurse Practitioner; Visit Provider Nurse Practitioner | DX: E11.65 Type 2 diabetes mellitus with hyperglycemia (principal); Z79.4 Long term (current) use of insulin | CPT/HCPCS: 80053; 80061; 82043; 82607; 83036 ==

== ENCOUNTER → 2023-06-20 10:33 | Outpatient (BNVA) | payer MEDICARE, MEDICAID, SELFPAY | PROVIDERS: PCP Nurse Practitioner; Visit Provider Specialist | DX: S42.022A Displaced fracture of shaft of left clavicle, initial encounter for closed fracture; W17.89XA Other fall from one level to another, initial encounter | CPT/HCPCS: 23500; 73000; 99204 ==

== ENCOUNTER 2023-10-24 06:00 | Outpatient (CLI) | payer MEDICARE, SELFPAY | END 2023-10-24 06:01 | disposition home or self-care (01) | LOC: RAD 11-13 06:41 | PROVIDERS: PCP Nurse Practitioner; Visit Provider Nurse Practitioner | DX: E11.9 Type 2 diabetes mellitus without complications (principal) | CPT/HCPCS: 80053; 81000; 83036 ==

== ENCOUNTER → 2023-11-10 13:38 | Outpatient (BNVA) | payer MEDICARE, SELFPAY | PROVIDERS: PCP Nurse Practitioner; Visit Provider Podiatrist Foot & Ankle Surgery | DX: E11.40 Type 2 diabetes mellitus with diabetic neuropathy, unspecified (principal); L84 Corns and callosities; L60.3 Nail dystrophy; Z79.4 Long term (current) use of insulin | CPT/HCPCS: 11056; 11721 ==

== ENCOUNTER → 2024-01-09 15:56 | Outpatient (BNVA) | payer MEDICARE, SELFPAY | PROVIDERS: PCP Nurse Practitioner; Visit Provider Nurse Practitioner | DX: E55.9 Vitamin D deficiency, unspecified (principal); E11.9 Type 2 diabetes mellitus without complications; E04.2 Nontoxic multinodular goiter | CPT/HCPCS: 80053; 80061; 82306; 83036; 84443 ==

== ENCOUNTER → 2024-02-08 14:11 | Outpatient (BNVA) | payer MEDICARE, SELFPAY | PROVIDERS: PCP Nurse Practitioner; Visit Provider Podiatrist Foot & Ankle Surgery | DX: M79.671 Pain in right foot (principal); E11.40 Type 2 diabetes mellitus with diabetic neuropathy, unspecified; L60.3 Nail dystrophy; L84 Corns and callosities; S92.501A Displaced unspecified fracture of right lesser toe(s), initial encounter for closed fracture; W18.40XA Slipping, tripping and stumbling without falling, unspecified, initial encounter; Z79.4 Long term (current) use of insulin | CPT/HCPCS: 11056; 11721; 28515; 73630 ==

== ENCOUNTER → 2024-05-01 11:34 | Outpatient (BNVA) | payer MEDICARE, SELFPAY | PROVIDERS: PCP Nurse Practitioner; Visit Provider Nurse Practitioner | DX: E11.65 Type 2 diabetes mellitus with hyperglycemia (principal); Z79.4 Long term (current) use of insulin | CPT/HCPCS: 80053; 80061; 81000; 83036 ==

== ENCOUNTER → 2024-07-11 14:28 | Outpatient (BNVA) | payer MEDICARE, SELFPAY | PROVIDERS: PCP Nurse Practitioner; Visit Provider Nurse Practitioner | DX: E11.65 Type 2 diabetes mellitus with hyperglycemia (principal); E55.9 Vitamin D deficiency, unspecified; Z79.4 Long term (current) use of insulin | CPT/HCPCS: 80053; 81000; 82306; 83036 ==

== ENCOUNTER → 2024-08-02 16:46 | Outpatient (BNVA) | payer MEDICARE, SELFPAY | PROVIDERS: PCP Nurse Practitioner; Visit Provider Nurse Practitioner | DX: Z12.4 Encounter for screening for malignant neoplasm of cervix (principal); E11.65 Type 2 diabetes mellitus with hyperglycemia; Z79.4 Long term (current) use of insulin | CPT/HCPCS: 82043; 88175 ==

== ENCOUNTER → 2024-10-03 14:13 | Outpatient (BNVA) | payer MEDICARE, SELFPAY | PROVIDERS: PCP Nurse Practitioner; Visit Provider Nurse Practitioner | DX: E11.9 Type 2 diabetes mellitus without complications (principal); E11.65 Type 2 diabetes mellitus with hyperglycemia; Z79.4 Long term (current) use of insulin | CPT/HCPCS: 80053; 80061; 81000; 82043; 83036 ==

== ENCOUNTER → 2025-01-01 10:06 | Outpatient (BNVA) | payer MEDICARE, SELFPAY | PROVIDERS: PCP Nurse Practitioner; Visit Provider Nurse Practitioner | DX: E11.65 Type 2 diabetes mellitus with hyperglycemia (principal); Z79.4 Long term (current) use of insulin; E55.9 Vitamin D deficiency, unspecified | CPT/HCPCS: 80053; 82043; 82306; 82607; 83036; 85025 ==